=== PATIENT | female | born 1975 | race Caucasian/White ===

== ENCOUNTER → 2017-10-11 | Outpatient (CLI) | payer BC ==
[~2017-10-11] VITALS: Ht 160 cm; Wt 113.4 kg
[~2017-10-11] MED LIST: AMLO10TA4 PO; ATOR20TA PO; CHOL100013 PO; HYDR12.58 PO; IBUP-1027 PO; LACT1CAP8 PO; LEVO150T5 PO; LIOT25TA12 PO; METF500T4 PO; NORG1TAB34 PO; ONDA4TAB7 PO; SITA1TAB11 PO
[2017-10-11 09:05] VITALS: BP 174/74
--- NOTE | 2017-10-12 08:26 | RAD ---
DATE: 10/11/2017 EXAM: DIGITAL DIAGNOSTIC LT, GUID NDL PLACE/ASPI/BX digital 2-D diagnostic left mammogram and ultrasound guided left breast biopsy HISTORY: Left upper outer mass. COMPARISON: Left breast ultrasound and diagnostic left breast mammogram 09/27/2017 This study was interpreted with the benefit of Computerized Aided Detection (CAD). Ultrasound-guided left breast biopsy: Procedure was explained to the patient including benefits and risks which include but are not limited to bleeding, infection and damage to adjacent structures. Patient wished to proceed and signed written informed consent. Patient was placed supine on the table. An appropriate site was marked prepped and draped in the usual sterile fashion. A timeout was performed according to institutional protocol. A small amount of 1% lidocaine was used to anesthetize the soft tissues. A small skin puncture site was made. Under ultrasound guidance, 4 14-gauge core biopsy samples were obtained from an ill-defined hypoechoic mass in the left breast at the 2:00 position. The samples were placed into formalin. Subsequently a titanium marker clip was placed under ultrasound guidance. Hemostasis was achieved. Patient proceeded to left breast mammogram. Left breast mammogram: CC and MLO views of the left breast for purposes to confirm marker placement. There is a small titanium marker along the anterior margin of the left upper outer breast mass. Impression: 1. Ultrasound-guided left upper outer breast mass core biopsy, pathology pending. 2. Left breast biopsy clip at the anterior margin of the mass. Mammography is a sensitive method for finding small breast cancers, but it does not detect them all and is not a substitute for careful clinical examination. A negative mammogram does not negate a clinically suspicious finding and should not result in delay in biopsying a clinically suspicious abnormality. "Our facility is accredited by the [employer] Mammography Program."
--- NOTE | 2017-10-15 15:10 | PATHOLOGY ---
PATHOLOGY REPORT * * * * * * * * FINAL DIAGNOSIS: Breast tissue, left breast mass, needle biopsy: - INVASIVE MAMMARY CARCINOMA WITH LOBULAR FEATURES. SEE COMMENT. (JPM:mml/pit; 10/15/2017) COMMENT: Sections of the left breast needle biopsy reveal an invasive mammary carcinoma. The malignant cells are largely present in cords infiltrating a reactive stroma. The malignant cells are also present in small solid nests showing no obvious tubule formation. The malignant cells have small amounts of pale eosinophilic cytoplasm, and possess rounded to ovoid, mild to moderately pleomorphic nuclei containing small nucleoli. I do not see significant mitotic activity. Invasive carcinoma measures up to approximately 1.0 cm in greatest dimension on the glass slide. There are no tumor associated calcifications. There is no lymphovascular tumor invasion. A limited panel of immunoperoxidase stains is obtained on block A3 and yields the following results: AE1/AE3 (A3): Infiltrating tumor cells positive E-cadherin (A3): Infiltrating tumor cells largely negative; scattered tumor cells show focal weak positivity. The morphologic and immunophenotypic findings are supportive of the diagnosis of an invasive mammary carcinoma with lobular features. The case is also examined by Dr. Christopher, who concurs with the diagnosis. Breast prognostic studies will be obtained, the results of which will be reported separately. (JPM:pit; 10/15/2017) Special stains: E-cadherin and AS1/AE3 PROCEDURE REPORT (Order Date: 10/12/2017 16:50) COMMENT: Quantitative image analysis was performed on block A3. Please see next page for scanned image of results. (ecc 10/17/2017) PATHOLOGIST: Julia Jorge M.D. REPORT ELECTRONICALLY SIGNED BY: Julia Jorge M.D. DATE/TIME: 10/19/2017 12:12 PROCEDURE REPORT (Order Date: 10/15/2017 00:00) COMMENT: The slides were marked for testing, and sent at the request of Dr. Maryellen Turner. FISH HER2/MIKEY-17 testing was performed by [facility] on block A3. Please see SCANNED IMAGES under LABORATORY for separate report of results. (IUV:amj; d/t: 10/22/2017) PATHOLOGIST: Julia Jorge M.D. REPORT ELECTRONICALLY SIGNED BY: Julia Jorge M.D. DATE/TIME: 10/23/2017 08:59 REPORT ELECTRONICALLY SIGNED BY: Greg Sung M.D. DATE/TIME: 10/15/2017 15:10 * * * * * * * * GROSS PATHOLOGY: Received in formalin labeled "Taniya Stringer, left breast," are multiple needle cores of yellow-rogers fibrofatty tissue measuring 1.7 x 0.7 x 0.3 cm in aggregate dimensions. The tissue is submitted in its entirety in cassette A1 through A3. The cold ischemic time is 5 minutes. The total formalin fixation time is 11 hours and 45 minutes. (TSD; 10/11/2017) INITIAL CPT CODE(S): A; 21868, 71537, 81391, 94415(4) Professional services performed [place] [facility] [place] [address] Technical services performed by [facility] at [address] [place] [address]. Dr Cameorn, [facility] fax: [phone] SPECIMEN(S) RECEIVED: A.Left breast mass CLINICAL HISTORY: Left breast mass PATIENT: TANIYA VALERIO /AGE: 112/17/1975 (Age: 41) PATIENT #: [id number] ALT CASE #: SPECIMEN COLLECTION DATE: 10/11/2017 SPECIMEN RECEIVED DATE: 10/11/2017 [facility] - [address] [place] [address] - PHONE: [phone] * * * END OF REPORT * * *
== END | disposition home or self-care (01) ==
LOC: US 08:29
PROVIDERS: ATTEND Obstetrics & Gynecology
DX: N63.20 Unspecified lump in the left breast, unspecified quadrant (principal); I10 Essential (primary) hypertension; E11.9 Type 2 diabetes mellitus without complications
CPT/HCPCS: 19081; 76942; C1713; G0206; 88305; 88341; 88342; 88361; 77065